=== PATIENT | female | born 1975 | race African-American/Black ===

== ENCOUNTER 2016-12-11 17:34 | Emergency (ER) | payer MEDICAID, OTHER ==
[~2016-12-11] VITALS: Ht 172.7 cm; Wt 102.2 kg
[~2016-12-11 17:34] MED LIST: ABILIFY; REYATAZ; SEE MED LIST; TRUVADA; [UNRECOGNIZED DRUG - OTHER]
[2016-12-11] MEDS ORDERED: IPRATROPIUM/ALBUTEROL 0.5-3(2.5)MG/3ML NEB HHN PRN (21:00)
[2016-12-11 21:15] VITALS: BP 129/81
== END 2016-12-11 22:20 | disposition home or self-care (01) ==
LOC: ER 20:41
DX: J06.9 Acute upper respiratory infection, unspecified (principal); J45.909 Unspecified asthma, uncomplicated; Z98.890 Other specified postprocedural states
CPT/HCPCS: 94640; 99283; J7620

== ENCOUNTER 2021-06-01 21:36 | Emergency (ER) | payer MEDICAID ==
[~2021-06-01] VITALS: Ht 172.7 cm; Wt 121.9 kg
[2021-06-02] MEDS ORDERED: AZITHROMYCIN 500 MG TABLET PO ONE (00:15)
[2021-06-02] MEDS ORDERED: CEFTRIAXONE SODIUM 250 MG/VIAL IM ONE (00:15)
[2021-06-02 00:23] LABS: CLARITY URINE CLOUDY (CLEAR); COLOR URINE YELLOW (YELLOW); KETONES URINE NEGATIVE (NEGATIVE); LEUKOCYTE ESTERASE URINE 1+ (NEGATIVE); NITRITE URINE NEGATIVE (NEGATIVE); OCCULT BLOOD URINE NEGATIVE (NEGATIVE); PROTEIN URINE TRACE (NEGATIVE); SPECIFIC GRAVITY URINE 1.025 (1.005-1.030)
[2021-06-02 00:34] LABS: BASOPHILS % 0.5 % (0.0-2.0); EOSINOPHILS % 7.1 % (0.0-5.0); HEMATOCRIT. 39.5 % (36.0-48.0); HEMOGLOBIN. 13.6 g/dL (12.0-16.0); LYMPHOCYTES % 22.9 % (20.0-50.0); MEAN CORPUSCULAR HEMOGLOBIN 30.5 pg (28.0-32.0); MEAN CORPUSCULAR VOLUME 88.6 fL (81.0-99.0); MEAN PLATELET VOLUME 8.9 fl (7.4-10.4); MONOCYTES % 5.4 % (2.0-8.0); NEUTROPHILS % 64.1 % (40.0-76.0); PLATELET 289 x1000/uL (130-400); RED BLOOD CELL COUNT 4.46 mill/uL (4.2-5.4); RED CELL DISTRIBUTION WIDTH 14.5 % (11.6-14.6)
[2021-06-02] MEDS ORDERED: METR-167 MT (01:27)
[2021-06-02 01:30] VITALS: BP 149/56
== END 2021-06-02 02:04 | disposition home or self-care (01) ==
LOC: ER 21:36
DX: N76.0 Acute vaginitis (principal); B96.89 Other specified bacterial agents as the cause of diseases classified elsewhere; Z20.2 Contact with and (suspected) exposure to infections with a predominantly sexual mode of transmission; Z86.2 Personal history of diseases of the blood and blood-forming organs and certain disorders involving the immune mechanism
CPT/HCPCS: 36415; 81003; 81025; 85025; 87210; 93005; 96372; 99284; J0696; Z7610

== ENCOUNTER 2022-09-27 15:06 | Emergency (ER) | payer MEDICAID, OTHER ==
[~2022-09-27] VITALS: Ht 175.3 cm; Wt 91.0 kg
[~2022-09-27 15:06] MED LIST changes: +METR-167 MT
[2022-09-27 15:23] VITALS: BP 124/82
[2022-09-27] MEDS ORDERED: ALBUTEROL (0.083%) 2.5MG/3ML NEB HHN STA (16:53)
[2022-09-27] MEDS ORDERED: IPRATROPIUM BROMIDE (0.02%) 0.5MG/2.5ML NEB HHN STA (16:53)
[2022-09-27] MEDS ORDERED: ACETAMINOPHEN 325MG TABLET PO STA (16:53)
[2022-09-27 17:26] LABS: BASOPHILS % 0.8 % (0.0-2.0); EOSINOPHILS % 10.3 % (0.0-5.0); HEMATOCRIT. 33.5 % (36.0-48.0); HEMOGLOBIN. 10.6 g/dL (12.0-16.0); LYMPHOCYTES % 25.1 % (20.0-50.0); MEAN CORPUSCULAR HEMOGLOBIN 26.7 pg (28.0-32.0); MEAN CORPUSCULAR VOLUME 84.2 fL (81.0-99.0); MEAN PLATELET VOLUME 8.5 fl (7.4-10.4); MONOCYTES % 5.8 % (2.0-8.0); PLATELET 371 x1000/uL (130-400); RED BLOOD CELL COUNT 3.98 mill/uL (4.2-5.4); RED CELL DISTRIBUTION WIDTH 16.2 % (11.6-14.6)
[2022-09-27 17:32] LABS: CHLORIDE 109 mEq/L (98-107)
[2022-09-27] MEDS ORDERED: ATROV INH (18:21)
[2022-09-27] MEDS ORDERED: ALBU18HF2 IH (18:21)
[2022-09-27] MEDS ORDERED: NAPR-681 PO (18:21)
== END 2022-09-27 18:36 | disposition home or self-care (01) ==
LOC: ER 15:06
DX: J44.1 Chronic obstructive pulmonary disease with (acute) exacerbation (principal); F12.10 Cannabis abuse, uncomplicated; Z20.822 Contact with and (suspected) exposure to COVID-19
CPT/HCPCS: 36415; 71045; 80053; 83880; 85025; 87426; 87804; 93005; 99285; C9803; Z7610

== ENCOUNTER 2023-06-10 22:01 | Emergency (ER) | payer MEDICAID, OTHER ==
[~2023-06-10] VITALS: Ht 175.3 cm; Wt 127.4 kg
[~2023-06-10 22:01] MED LIST changes: +ALBU18HF2 IH; +ATROV INH; +NAPR-681 PO
[2023-06-10 22:08] VITALS: BP 122/69; TEMP 97.9
[2023-06-10] MEDS ORDERED: GUAIFENESIN 600MG ER TABLET PO STA (22:32)
[2023-06-10] MEDS ORDERED: ALBUTEROL (0.083%) 2.5MG/3ML NEB HHN STA (22:32)
[2023-06-10 22:57] VITALS: PULSE 60; RESP 18; O2SAT 99
[2023-06-11] MEDS ORDERED: GUAI600T26 PO (00:05)
[2023-06-11] MEDS ORDERED: ALBU6.7H3 INH (00:05)
== END 2023-06-11 00:22 | disposition home or self-care (01) ==
LOC: ER 22:01
DX: J40 Bronchitis, not specified as acute or chronic (principal); D64.9 Anemia, unspecified; F12.10 Cannabis abuse, uncomplicated; Z79.899 Other long term (current) drug therapy
CPT/HCPCS: 71045; 94640; 99283; Z7610 ×3

== ENCOUNTER 2023-10-28 00:48 | Emergency (ER) | payer OTHER ==
[~2023-10-28] VITALS: Ht 167.6 cm; Wt 114.0 kg
[~2023-10-28 00:48] MED LIST changes: +ALBU6.7H3 INH; +GUAI600T26 PO
[2023-10-28 01:36] LABS: HCG SCREEN NEGATIVE
[2023-10-28] MEDS: PREDNISONE 20MG TABLET PO STA (01:36)
[2023-10-28] MEDS: ACETAMINOPHEN 325MG TABLET PO ONE (01:36)
[2023-10-28] MEDS: IPRATROPIUM BROMIDE (0.02%) 0.5MG/2.5ML NEB HHN STA (02:05)
[2023-10-28] MEDS: ALBUTEROL (0.083%) 2.5MG/3ML NEB HHN STA (02:05)
[2023-10-28 02:10] VITALS: PULSE 97; RESP 18; O2SAT 98
[2023-10-28 02:30] VITALS: BP 143/76; PULSE 84; RESP 16; TEMP 98.8
[2023-10-28] MEDS ORDERED: P20 MT (02:36)
[2023-10-28] MEDS ORDERED: ALBU6.7H15 INH (02:36)
== END 2023-10-28 02:52 | disposition home or self-care (01) ==
LOC: ER 00:48
DX: J45.901 Unspecified asthma with (acute) exacerbation (principal); F17.200 Nicotine dependence, unspecified, uncomplicated; F12.10 Cannabis abuse, uncomplicated; Z00.00 Encounter for general adult medical examination without abnormal findings; Z79.899 Other long term (current) drug therapy
CPT/HCPCS: 84703; 94640; 99283; J7512; Z7610 ×3